=== PATIENT | male | born 1940 | race Caucasian/White ===

== ENCOUNTER → 2017-09-30 | Outpatient (REF) | payer MEDICARE, OTHER ==
[2017-09-30 20:35] LABS: BASO # 0.1 10^3/uL (0.0-0.2); BASO % 0.8 % (0.0-1.0); EOS # 0.3 10^3/uL (0.0-0.50); EOS % 3.9 % (0.0-3.0); HEMATOCRIT 36.2 % (42.0-52.0); HEMOGLOBIN 11.9 g/dl (13.5-17.5); IMMATURE GRANULOCYTE % 0.4 % (0-3.0); LYMPH # 1.7 10^3/uL (1.5-4.5); LYMPH % 21.4 % (24.0-44.0); MEAN CORPUSCULAR HEMOGLOBIN 28.1 pg (27.0-33.0); MEAN CORPUSCULAR HGB CONC 32.9 g/dl (32.0-36.5); MEAN CORPUSCULAR VOLUME 85.4 fl (80.0-96.0); MONO # 0.7 10^3/uL (0.0-0.8); MONO % 8.4 % (0.0-5.0); NEUTROPHILS # 5.2 10^3/uL (1.8-7.7); NEUTROPHILS % 65.1 % (36.0-66.0); PLATELET COUNT, AUTOMATED 197 10^3/uL (150-450); RED BLOOD COUNT 4.24 10^6/uL (4.30-6.10); RED CELL DISTRIBUTION WIDTH 13.9 % (11.5-14.5)
[2017-09-30 20:43] LABS: ESTIMATED AVERAGE GLUCOSE 169 MG/DL (60-110); HEMOGLOBIN A1c 7.5 %
[2017-09-30 20:53] LABS: ALBUMIN 3.8 GM/DL (3.2-5.2); ALBUMIN/GLOBULIN RATIO 1.15 (1.00-1.93); ALKALINE PHOSPHATASE 75 U/L (45-117); ALT/SGPT 20 U/L (12-78); ANION GAP 7 MEQ/L (8-16); AST/SGOT 16 U/L (7-37); BILIRUBIN,TOTAL 0.5 MG/DL (0.2-1.0); BLOOD UREA NITROGEN 15 MG/DL (7-18); CALCIUM LEVEL 8.5 MG/DL (8.8-10.2); CARBON DIOXIDE LEVEL 29 MEQ/L (21-32); CHLORIDE LEVEL 106 MEQ/L (98-107); CHOLESTEROL LEVEL 133 MG/DL (<200); CHOLESTEROL RISK RATIO 3.022 (<5); CREATININE FOR GFR 1.64 MG/DL (0.70-1.30); GLOMERULAR FILTRATION RATE 43.5 (>42); GLUCOSE, FASTING 92 MG/DL (70-100); HDL CHOLESTEROL 44 MG/DL (>40); LDL CHOLESTEROL 63.4 MG/DL (<100); NON-HDL-C 89 MG/DL; POTASSIUM SERUM 4.4 MEQ/L (3.5-5.1); SODIUM LEVEL 142 MEQ/L (136-145); THYROID STIMULATING HORMONE 0.495 uIU/ML (0.358-3.740); TOTAL PROTEIN 7.1 GM/DL (6.4-8.2); TRIGLYCERIDES LEVEL 128 MG/DL (<150)
[2017-09-30 21:01] LABS: CREATININE, URINE 56.8 MG/DL; MAU/CREAT RATIO 445.4 MCG/MG (0.0-30.0)
== END ==
LOC: M SFHCLERA 15:08
DX: I12.9 Hypertensive chronic kidney disease with stage 1 through stage 4 chronic kidney disease, or unspecified chronic kidney disease (principal); E11.22 Type 2 diabetes mellitus with diabetic chronic kidney disease; N18.9 Chronic kidney disease, unspecified
CPT/HCPCS: 84443

== ENCOUNTER → 2018-01-06 | Outpatient (CLI) | payer MEDICARE, OTHER | LOC: M RAD 08:29 | DX: N18.3 Chronic kidney disease, stage 3 (moderate) (principal); I15.0 Renovascular hypertension | CPT/HCPCS: 76775 ==

== ENCOUNTER → 2018-02-03 | Outpatient (REF) | payer MEDICARE, OTHER ==
[2018-02-03 20:51] LABS: ESTIMATED AVERAGE GLUCOSE 180 MG/DL (60-110); HEMOGLOBIN A1c 7.9 %
== END ==
LOC: M SFHCLERA 15:40
DX: E11.22 Type 2 diabetes mellitus with diabetic chronic kidney disease (principal); Z23 Encounter for immunization
CPT/HCPCS: 83036

== ENCOUNTER 2018-03-06 06:46 | Day surgery (SDC) | payer MEDICARE, OTHER ==
[2018-03-06] MEDS ORDERED: MIDAZOLAM INJ 2 MG/2 ML VIAL (J2250) As Ordered (07:13)
[2018-03-06] MEDS: OFLOXACIN 0.3 % (OCUFLOX) OPTH SOL 5ML OS (07:15)
[2018-03-06] MEDS: PROPARACAINE 0.5% OPHTH SOL 15ML OS (07:15)
[2018-03-06] MEDS: TROPICAMIDE 1% OPHTH SOLN 2ML OS (07:15)
[2018-03-06] MEDS: PHENYLEPHRINE 2.5% OPHTH SOL 2ML OS (07:15)
[2018-03-06 07:35] LABS: BEDSIDE GLUCOSE 149 MG/DL (83-110)
[2018-03-06] MEDS ORDERED: fentaNYL 100 MCG/2 ML INJECTION (J3010) As Ordered (08:51)
[2018-03-06] MEDS: POVIDONE-IODINE 5% OPHTH PREP SOL 30ML As Ordered (09:02)
[2018-03-06] MEDS: LIDOCAINE 0.75%/EPINEPHRINE 0.025% IN BSS 1ML SYR INTRACAMERAL (OR ONLY) As Ordered (09:03)
[2018-03-06] MEDS: CEFUROXIME 1MG/0.1ML INTRACAMERAL INJ As Ordered (09:03)
[2018-03-06] MEDS: DUOVISC (0.50ML VISCOAT/0.55ML PROVISC) OPHTH KIT As Ordered (09:03)
[2018-03-06] MEDS: BALANCED SALT IRRIGATION SOLUTION 500ML BAG (FOR OR EYE MACHINE) As Ordered (09:03)
== END 2018-03-06 09:40 | disposition home or self-care (01) ==
LOC: M SDC 06:46
DX: H25.12 Age-related nuclear cataract, left eye (principal); I12.9 Hypertensive chronic kidney disease with stage 1 through stage 4 chronic kidney disease, or unspecified chronic kidney disease; I25.10 Atherosclerotic heart disease of native coronary artery without angina pectoris; E10.9 Type 1 diabetes mellitus without complications; E78.00 Pure hypercholesterolemia, unspecified; J44.9 Chronic obstructive pulmonary disease, unspecified; F43.10 Post-traumatic stress disorder, unspecified; K21.9 Gastro-esophageal reflux disease without esophagitis; M12.9 Arthropathy, unspecified; M48.00 Spinal stenosis, site unspecified; R06.02 Shortness of breath; R51 Headache; R06.83 Snoring; G47.33 Obstructive sleep apnea (adult) (pediatric); N18.9 Chronic kidney disease, unspecified; Z88.8 Allergy status to other drugs, medicaments and biological substances; Z91.048 Other nonmedicinal substance allergy status; Z79.899 Other long term (current) drug therapy; Z79.4 Long term (current) use of insulin; Z79.82 Long term (current) use of aspirin; Z87.81 Personal history of (healed) traumatic fracture; Z85.828 Personal history of other malignant neoplasm of skin
CPT/HCPCS: 66984

== ENCOUNTER 2018-03-13 09:30 | Day surgery (SDC) | payer MEDICARE, OTHER ==
[~2018-03-13 09:30] MED LIST: MIDAZOLAM INJ 2 MG/2 ML VIAL (J2250) As Ordered; fentaNYL 100 MCG/2 ML INJECTION (J3010) As Ordered
[2018-03-13] MEDS: OFLOXACIN 0.3 % (OCUFLOX) OPTH SOL 5ML OD (11:00)
[2018-03-13] MEDS: TROPICAMIDE 1% OPHTH SOLN 2ML OD (11:00)
[2018-03-13] MEDS: PHENYLEPHRINE 2.5% OPHTH SOL 2ML OD (11:00)
[2018-03-13] MEDS: PROPARACAINE 0.5% OPHTH SOL 15ML OD (11:00)
[2018-03-13 11:03] LABS: BEDSIDE GLUCOSE 100 MG/DL (83-110)
[2018-03-13] MEDS: POVIDONE-IODINE 5% OPHTH PREP SOL 30ML As Ordered (12:01)
[2018-03-13] MEDS: BALANCED SALT IRRIGATION SOLUTION 500ML BAG (FOR OR EYE MACHINE) As Ordered (12:01)
[2018-03-13] MEDS: CEFUROXIME 1MG/0.1ML INTRACAMERAL INJ As Ordered (12:02)
[2018-03-13] MEDS: LIDOCAINE 0.75%/EPINEPHRINE 0.025% IN BSS 1ML SYR INTRACAMERAL (OR ONLY) As Ordered (12:02)
[2018-03-13] MEDS: DUOVISC (0.50ML VISCOAT/0.55ML PROVISC) OPHTH KIT As Ordered (12:02)
== END 2018-03-13 12:45 | disposition home or self-care (01) ==
LOC: M SDC 09:30
DX: H25.11 Age-related nuclear cataract, right eye (principal); I10 Essential (primary) hypertension; I25.10 Atherosclerotic heart disease of native coronary artery without angina pectoris; E78.00 Pure hypercholesterolemia, unspecified; E10.9 Type 1 diabetes mellitus without complications; M48.00 Spinal stenosis, site unspecified; K21.9 Gastro-esophageal reflux disease without esophagitis; R06.02 Shortness of breath; R51 Headache; J45.909 Unspecified asthma, uncomplicated; K44.9 Diaphragmatic hernia without obstruction or gangrene; R06.83 Snoring; G47.33 Obstructive sleep apnea (adult) (pediatric); N28.9 Disorder of kidney and ureter, unspecified; R29.898 Other symptoms and signs involving the musculoskeletal system; F43.10 Post-traumatic stress disorder, unspecified; M12.9 Arthropathy, unspecified; Z88.8 Allergy status to other drugs, medicaments and biological substances; Z91.048 Other nonmedicinal substance allergy status; Z79.899 Other long term (current) drug therapy; Z79.4 Long term (current) use of insulin; Z79.82 Long term (current) use of aspirin; Z86.73 Personal history of transient ischemic attack (TIA), and cerebral infarction without residual deficits
CPT/HCPCS: 66984

== ENCOUNTER → 2018-05-15 | Outpatient (REF) | payer MEDICARE, OTHER ==
[~2018-05-15] MED LIST changes: +AMLO2.5T3 PO; +ASPI1TAB PO; +ATEN50TA2 PO; +ATOR40TA75 PO; +B-2100TA PO; +CALC1CAP31 PO; +CYCLOSPORINE OU; +D 10CHW PO; +FISH1CAP24 PO; +FLUTISP; +GLIP10TA6 PO; +HUMA100I5 SC; +LORA-243 PO; +LOSA50TA88 PO; +MAGO400T PO; -MIDAZOLAM INJ 2 MG/2 ML VIAL (J2250) As Ordered; +PANT40TA3 PO; +PARO30TA3 PO; +POTA10TA16 PO; +PRAZ2CAP PO; +PROAAER10 INH; +REFR0.5D8 OU; +SYMB80INH INH; +TIOT18INH INH; -fentaNYL 100 MCG/2 ML INJECTION (J3010) As Ordered; +glargine insulin SC
[2018-05-15 20:03] LABS: CALCIUM LEVEL 8.5 MG/DL (8.8-10.2); CREATININE FOR GFR 1.85 MG/DL (0.70-1.30); GLOMERULAR FILTRATION RATE 37.7 (>42); POTASSIUM SERUM 4.8 MEQ/L (3.5-5.1)
[2018-05-15 20:27] LABS: HEMOGLOBIN A1c 8.3 %
== END ==
LOC: M SFHCLERA 16:27
PROVIDERS: ATTEND Family Medicine
DX: E11.22 Type 2 diabetes mellitus with diabetic chronic kidney disease (principal)

== ENCOUNTER → 2018-05-15 | Outpatient (CLI) | payer MEDICARE, OTHER ==
--- NOTE | 2018-05-15 10:56 | REP ---
HIGH-RESOLUTION BILATERAL SCROTAL SONOGRAPHY: HISTORY: Swollen tender right testicle. Exam, suggestive of hydrocele. FINDINGS: High-resolution bilateral scrotal sonography shows small bilateral hydroceles. No intratesticular mass lesion is seen on either side. The right testis measures 4.3 x 2.9 x 3.4 cm. Left testis measures 4.8 x 2.5 x 3.4 cm. Doppler flow is preserved in both testes. Resistive indices are 0.61 on the right and 0.67 on the left. There are epididymal cysts bilaterally. The largest on the right measures 2.9 x 2.5 x 2.8 cm and 1.8 x 1.2 x 1.4 cm. There is a cyst in the head of the epididymis on the left measuring 1.0 x 1.0 x 0.8 cm. IMPRESSION: 2.9 cm cyst in the head of the epididymis on the right. Small bilateral hydroceles. No intratesticular mass lesion seen. Electronically Signed by Christopher Diaz MD 05/15/2018 06:02 P
== END ==
LOC: M RAD 08:53
PROVIDERS: ATTEND Family Medicine
DX: N50.3 Cyst of epididymis (principal); N50.89 Other specified disorders of the male genital organs; E11.22 Type 2 diabetes mellitus with diabetic chronic kidney disease

== ENCOUNTER → 2018-07-16 | Outpatient (REF) | payer MEDICARE, OTHER ==
[2018-07-16 12:07] LABS: CALCIUM LEVEL 8.3 MG/DL (8.8-10.2); CREATININE FOR GFR 2.33 MG/DL (0.70-1.30); GLOMERULAR FILTRATION RATE 28.9 (>42); POTASSIUM SERUM 4.4 MEQ/L (3.5-5.1)
[2018-07-16 12:43] LABS: HEMOGLOBIN A1c 7.8 %
== END ==
LOC: M SFHCLERA 08:59
PROVIDERS: ATTEND Family Medicine
DX: I10 Essential (primary) hypertension (principal)

== ENCOUNTER → 2018-07-22 | Outpatient (REF) | payer MEDICARE, OTHER ==
[2018-07-22 13:29] LABS: CALCIUM LEVEL 8.7 MG/DL (8.8-10.2); CREATININE FOR GFR 2.16 MG/DL (0.70-1.30); GLOMERULAR FILTRATION RATE 31.6 (>42); POTASSIUM SERUM 4.2 MEQ/L (3.5-5.1)
== END ==
LOC: M SFHCLERA 09:14
PROVIDERS: ATTEND Family Medicine
DX: I10 Essential (primary) hypertension (principal)

== ENCOUNTER → 2018-08-05 | Outpatient (CLI) | payer MEDICARE, OTHER ==
[~2018-08-05] MED LIST changes: -ASPI1TAB PO; +ASPI81TA26 PO
--- NOTE | 2018-08-05 11:45 | REP ---
Right hip three views: There is mild joint space narrowing. There is no femoral head deformity. There is no fracture or dislocation. Mineralization is normal. There is a calcification lateral to the acetabular roof, likely a degenerative ligamentous calcification. Impression: Mild joint space narrowing. Degenerative calcification lateral to the acetabular roof. The wall of the Electronically Signed by Luis Keller MD 08/05/2018 11:36 A
== END ==
LOC: M LRY 09:29
PROVIDERS: ATTEND Family Medicine
DX: M25.551 Pain in right hip (principal); I10 Essential (primary) hypertension; E11.9 Type 2 diabetes mellitus without complications

== ENCOUNTER 2018-09-17 11:38 | Emergency (ER) | payer MEDICARE, OTHER ==
[~2018-09-17] VITALS: Ht 165.1 cm; Wt 92.9 kg
[2018-09-17] MEDS ORDERED: LOSA100T5 PO (11:56)
[2018-09-17] MEDS ORDERED: NS 1,000 ML IV ONE ×2 (13:15→16:00)
[2018-09-17] MEDS ORDERED: ONDANSETRON 4MG/2ML VIAL (J2405) IV ONE (13:15)
[2018-09-17 13:33] LABS: BASO % 0.5 % (0.0-1.0); EOS # 0.5 10^3/uL (0.0-0.50); HEMATOCRIT 36.3 % (42.0-52.0); HEMOGLOBIN 11.8 g/dl (13.5-17.5); LYMPH # 1.7 10^3/uL (1.5-4.5); LYMPH % 21.1 % (24.0-44.0); MEAN CORPUSCULAR HEMOGLOBIN 28.3 pg (27.0-33.0); MEAN CORPUSCULAR HGB CONC 32.5 g/dl (32.0-36.5); MEAN CORPUSCULAR VOLUME 87.1 fl (80.0-96.0); MONO # 0.9 10^3/uL (0.0-0.8); MONO % 11.4 % (0.0-5.0); NEUTROPHILS % 60.9 % (36.0-66.0); PLATELET COUNT, AUTOMATED 222 10^3/uL (150-450); RED BLOOD COUNT 4.17 10^6/uL (4.30-6.10); WHITE BLOOD COUNT 8.2 10^3/uL (4.0-10.0)
[2018-09-17 13:54] LABS: ALBUMIN 4.1 GM/DL (3.2-5.2); BILIRUBIN,DIRECT 0.1 MG/DL (0.0-0.2); BILIRUBIN,TOTAL 0.5 MG/DL (0.2-1.0); CALCIUM LEVEL 9.1 MG/DL (8.8-10.2); CREATININE FOR GFR 2.4 MG/DL (0.70-1.30); GLOMERULAR FILTRATION RATE 27.9 (>42); POTASSIUM SERUM 4.5 MEQ/L (3.5-5.1); TOTAL PROTEIN 7.2 GM/DL (6.4-8.2)
--- NOTE | 2018-09-17 14:57 | REP ---
Clinical: Nausea and vomiting. Technique: Axial noncontrast images from the lung bases to the pubic symphysis with coronal and sagittal re-formations. Comparison: None. Findings: Lung bases demonstrate mild bilateral dependent and fibroatelectatic changes. Hepatic and splenic calcifications suggest prior granulomas disease without focal acute abnormality identified. Pancreas, gallbladder, bilateral adrenal glands are normal. The kidneys demonstrate chronic atrophic changes and chronic-appearing perinephric stranding without hydronephrosis or nephrolithiasis. The enteric system is without obstruction or acute inflammatory process few scattered colonic diverticula noted without acute diverticulitis. Pelvis demonstrates mildly enlarged prostate gland with mass effect on the base of the bladder. No ascites. No free air. No adenopathy. Atherosclerotic changes of the aorta and vasculature noted without aneurysm. Musculoskeletal structures demonstrate degenerative changes without focal abnormality. Impression: Relatively chronic-appearing changes as described above. No obvious acute abdominopelvic pathology appreciated. Electronically Signed by Anatoliy Falk MD 09/17/2018 02:48 P
[2018-09-17 18:00] VITALS: BP 170/74
== END 2018-09-17 18:03 | disposition home or self-care (01) ==
LOC: M ED 11:38
DX: E86.0 Dehydration (principal); E11.9 Type 2 diabetes mellitus without complications; I10 Essential (primary) hypertension; J44.9 Chronic obstructive pulmonary disease, unspecified; J45.909 Unspecified asthma, uncomplicated; M48.00 Spinal stenosis, site unspecified; K21.9 Gastro-esophageal reflux disease without esophagitis; M51.9 Unspecified thoracic, thoracolumbar and lumbosacral intervertebral disc disorder; Z79.82 Long term (current) use of aspirin; Z88.7 Allergy status to serum and vaccine; Z88.8 Allergy status to other drugs, medicaments and biological substances
CPT/HCPCS: 74176; 80048; 80076; 81001; 83690; 85025; 87507; 96361; 96374; 99284; J2405

== ENCOUNTER → 2018-09-19 | Outpatient (REF) | payer MEDICARE, OTHER ==
[~2018-09-19] MED LIST changes: +LOSA100T5 PO
[2018-09-19 14:30] LABS: BASO % 0.4 % (0.0-1.0); EOS # 0.4 10^3/uL (0.0-0.50); EOS % 5.3 % (0.0-3.0); HEMATOCRIT 32.2 % (42.0-52.0); HEMOGLOBIN 10.3 g/dl (13.5-17.5); LYMPH # 1.7 10^3/uL (1.5-4.5); LYMPH % 24.7 % (24.0-44.0); MEAN CORPUSCULAR HEMOGLOBIN 28.3 pg (27.0-33.0); MEAN CORPUSCULAR VOLUME 88.5 fl (80.0-96.0); MONO # 0.7 10^3/uL (0.0-0.8); MONO % 9.9 % (0.0-5.0); NEUTROPHILS # 4.1 10^3/uL (1.8-7.7); NEUTROPHILS % 59.3 % (36.0-66.0); PLATELET COUNT, AUTOMATED 205 10^3/uL (150-450); RED BLOOD COUNT 3.64 10^6/uL (4.30-6.10)
== END ==
LOC: M LAB REF 13:57
PROVIDERS: ATTEND Internal Medicine Nephrology
DX: N18.9 Chronic kidney disease, unspecified (principal); D63.1 Anemia in chronic kidney disease

== ENCOUNTER → 2018-12-04 | Outpatient (CLI) | payer MEDICARE, OTHER ==
[~2018-12-04] MED LIST changes: +ACET650T15 PO; +B-12100021 PO; +HYDR-3713 PO; +MAGN400T3 PO; +PERC5TAB12 PO; +SYMB16INH INH; +XARE10TA PO
--- NOTE | 2018-12-04 15:20 | REP ---
MRI LEFT SHOULDER: TECHNIQUE: Axial T2 fat sat, gradient echo, sagittal oblique T2 fat sat, coronal oblique T1, T2 fat sat. There is a complete full-thickness tear of the supraspinatus tendon with retraction of the musculotendinous junction approximately 5 cm. There is a high-grade tear of the subscapularis tendon which appears virtually complete. There is also a high grade tear of the infraspinatus tendon with the tear extending through the full-thickness of at least a portion of the infraspinatus tendon. Teres minor appears intact. Metallic clothing artifact is seen in the region of the acromion and humeral head from prior rotator cuff repair and likely acromioplasty. Humeral head is high-riding and abuts the acromion. Acromion is type 2. Biceps tendon is displaced anteromedially out of the bicipital groove with thickening of increased signal compatible with tendonitis and possibly a partial tear. There is mild to moderate surrounding fluid. There is no Hill-Sachs deformity. The deltoid muscle demonstrates no abnormal signal. There is diffuse labral fraying. No definite discrete labral tear is seen. There is moderate diffuse chondromalacia at the glenohumeral joint. Subchondral marrow edema is seen in the superior glenoid and superior humeral head. There is a moderate joint effusion with fluid extending into the subacromial subdeltoid bursae. IMPRESSION: Full-thickness complete tear supraspinatus tendon with retraction of the musculotendinous junction approximately 5 cm. There is a high grade and virtually complete tear of the subscapularis tendon. There is a high-grade tear of the infraspinatus tendon with a full-thickness tear through at least a portion of the tendon. The acromion is type 2. There is evidence of prior rotator cuff repair and acromioplasty. Biceps tendon is displaced anteromedially out of the bicipital groove with increased signal and surrounding fluid compatible with tendinitis and possibly a partial tear. There is diffuse labral fraying. There is moderate chondromalacia of the glenohumeral joint with subchondral marrow edema. Moderate joint effusion with fluid extending into the subacromial/subdeltoid bursae. Unreviewed
== END ==
LOC: M RAD 11:20
PROVIDERS: ATTEND Orthopaedic Surgery Sports Medicine
DX: M75.120 Complete rotator cuff tear or rupture of unspecified shoulder, not specified as traumatic (principal); M25.412 Effusion, left shoulder; M94.212 Chondromalacia, left shoulder; S43.432A Superior glenoid labrum lesion of left shoulder, initial encounter; Y92.9 Unspecified place or not applicable; Y93.9 Activity, unspecified

== ENCOUNTER → 2019-03-02 | Outpatient (CLI) | payer MEDICARE, OTHER ==
[~2019-03-02] MED LIST changes: -PERC5TAB12 PO; -XARE10TA PO
[2019-03-02 15:15] LABS: HEMATOCRIT 32.3 % (42.0-52.0); HEMOGLOBIN 10.9 g/dl (13.5-17.5); MEAN CORPUSCULAR HEMOGLOBIN 30.4 pg (27.0-33.0); MEAN CORPUSCULAR HGB CONC 33.7 g/dl (32.0-36.5); MEAN CORPUSCULAR VOLUME 90.2 fl (80.0-96.0); PLATELET COUNT, AUTOMATED 207 10^3/uL (150-450); RED BLOOD COUNT 3.58 10^6/uL (4.30-6.10); WHITE BLOOD COUNT 6.7 10^3/uL (4.0-10.0)
--- NOTE | 2019-03-02 15:22 | REP ---
Two-view chest: 03/02/2019. Indication: Preoperative assessment. Comparison: None. Findings: The lungs are clear. Minimal bibasilar plate-like atelectasis is noted. There is no pleural effusion or pneumothorax. The cardiomediastinal silhouette is unremarkable. The lungs are mildly hyperinflated. Impression: No acute cardiopulmonary process. Electronically Signed by Harjeet Dhaliwal DO 03/02/2019 03:14 P
[2019-03-02 15:30] LABS: INR 1.09; PROTHROMBIN TIME 13.8 SECONDS (11.8-14.0)
[2019-03-02 15:36] LABS: ALBUMIN 3.7 GM/DL (3.2-5.2); BILIRUBIN,TOTAL 0.4 MG/DL (0.2-1.0); CALCIUM LEVEL 9.2 MG/DL (8.8-10.2); CREATININE FOR GFR 2.05 MG/DL (0.70-1.30); GLOMERULAR FILTRATION RATE 33.4 (>35); POTASSIUM SERUM 4.5 MEQ/L (3.5-5.1); TOTAL PROTEIN 6.9 GM/DL (6.4-8.2)
[2019-03-02 16:14] LABS: ERYTHROCYTE SEDIMENTATION RATE 26 mm/hr (0-20)
--- NOTE | 2019-03-02 21:54 | ECGEPIP ---
[facility] Test Date: 2019-03-02 Pat Name: RUDDY PAIGE Department: Room: - Gender: Male Order Dispatcher: [facility] : 1940 Requested By: Supa Mckay Order Number: [id number] Reading MD: Byron Nova Measurements Intervals [place] Rate: 50 P: 69 MA: 204 QRS: 14 QRSD: 177 T: 100 QT: 493 QTc: 451 Interpretive Statements Sinus bradycardia Left bundle branch block Comparison tracing not on file Electronically Signed on 03-02-2019 21:54:20 EST by Byron Nova
== END ==
LOC: M LAB 14:14
PROVIDERS: ATTEND Orthopaedic Surgery
DX: Z01.810 Encounter for preprocedural cardiovascular examination (principal); M16.11 Unilateral primary osteoarthritis, right hip; Z79.899 Other long term (current) drug therapy

== ENCOUNTER → 2019-03-06 | Outpatient (REF) | payer MEDICARE, OTHER ==
[~2019-03-06] MED LIST changes: +PERC5TAB12 PO; +XARE10TA PO
[2019-03-06 16:54] LABS: HEMOGLOBIN 11.8 g/dl (13.5-17.5)
== END ==
LOC: M SFHCLERA 11:26
PROVIDERS: ATTEND Family Medicine
DX: Z01.818 Encounter for other preprocedural examination (principal); M16.11 Unilateral primary osteoarthritis, right hip; I10 Essential (primary) hypertension; E11.9 Type 2 diabetes mellitus without complications
CPT/HCPCS: 83036; 85014; 85018; G0463

== ENCOUNTER 2019-03-18 07:00 | Inpatient (IN) | payer MEDICARE, OTHER ==
--- NOTE | 2019-03-16 16:24 | HPE ---
DATE OF ANTICIPATED ADMISSION: 03/18/2019 ATTENDING PHYSICIAN: Dr. Supa Mckay CHIEF COMPLAINT: Right hip pain and stiffness. HISTORY: This is a pleasant, 79-year-old male patient with worsening right hip pain and stiffness with weightbearing activities, who has failed to improve with conservative treatment. He has elected for right total hip arthroplasty with Dr. Supa Mckay for his continued symptoms. ALLERGIES: TYLENOL, LISINOPRIL, REQUIP, FLUNISOLIDE, TETANUS STATUS, DTAP INJECTION. CURRENT MEDICATIONS: - cyclosporine eye drops - paroxetine 30 mg one by mouth daily - prazosin 2 mg one by mouth at bedtime daily - loratadine 10 mg one by mouth daily - fish oil 1000 mg one by mouth daily - budesonide [id number] - 4.5 mcg 2 puffs twice a day - riboflavin 100 mg one by mouth daily - tiotropium bromide [id number] mcg one by mouth daily - albuterol sulfate 108 mcg 2 puffs as needed every 6 hours - fluticasone [id number] mcg one per nostril daily - pantoprazole sodium 40 mg one by mouth daily - cholecalciferol 1000 units one by mouth daily - potassium chloride extended release 10 mEq one by mouth daily with food - 1000 mcg one by mouth daily - magnesium oxide 400 mg one by mouth daily - calcitriol 0.5 mcg one by mouth daily - atorvastatin 40 mg one by mouth daily - glipizide 10 mg one by mouth twice a day - insulin - atenolol 50 mg one by mouth daily - amlodipine 5 mg one by mouth daily - losartan potassium hydrochlorothiazide 100 - 25 one by mouth daily - hydrocodone acetaminophen one by mouth every 4 hours as needed for pain PAST MEDICAL HISTORY: 1. Diabetes, insulin-dependent. 2. Hypertension. 3. Seasonal allergies. 4. Obstructive sleep apnea. 5. Chronic heartburn. 6. Chronic obstructive pulmonary disease (COPD). 7. Headaches. 8. Posttraumatic stress disorder (PTSD). 9. Hyperlipidemia. 10. Chronic kidney disease. SURGICAL HISTORY: 1. Hemorrhoidectomy. 2. Right forearm open reduction, internal fixation (ORIF). 3. Left rotator cuff repair. 4. Right rotator cuff repair. 5. Left knee arthroscopy. 6. Basal cell carcinoma removal right forehead and upper chest. 7. Bilateral cataract surgery. SOCIAL HISTORY: The patient is a former smoker, does not use alcohol. FAMILY HISTORY: Noncontributory. REVIEW OF SYSTEMS: Denies fever, chills, chest pain, shortness breath, nausea, vomiting, diarrhea. Denies recent upper respiratory or urinary tract infection symptoms. Reports continued right hip pain with weightbearing activities. PHYSICAL EXAMINATION: Height 5, 5. Weight 188.6. Temperature 97.5. Blood pressure 130/60. Respirations 13. Pulse 62. Normocephalic, atraumatic. Neck supple and nontender with no lymphadenopathy or jugular venous distention (JVD). Abdomen soft, nontender to palpation. S1, S2 auscultated with nonlabored breathing. Abdomen soft, nontender. The right hip is well perfused. The overlying skin is intact. There is no obvious deformity of right lower extremity. Intact neurovascular status. EKG with sinus bradycardia, left bundle branch block. No comparison on file. Chest x-ray no acute cardiopulmonary process. LABS: White count 6.7, red count 3.58, hemoglobin 10.9, hematocrit 32.3. ESR 26. PT 13.8, INR 1.09. BUN 28, creatinine 2.05. Medical optimization by Dr. Del Toro was reviewed and available today on the chart. ASSESSMENT: Symptomatic right hip degenerative changes. PLAN: Consented for right total hip arthroplasty with Dr. Supa Mckay pending clearance from linderman machine operator and bank teller machine mechanic. Appointments on 03/17/2019. Otherwise, preoperative medical recommendations were noted in Dr. Del Toro's preoperative appointment.
[~2019-03-18] VITALS: Ht 165.1 cm; Wt 88.5 kg
[2019-03-18] VITALS (9 sets, daily range): BP systolic 135–156; BP diastolic 62–80; O2SAT 96
[~2019-03-18 07:00] MED LIST changes: +LIDOCAINE 1% MDV 20ML VIAL SQ PRN; -PERC5TAB12 PO; -XARE10TA PO
[2019-03-18] MEDS ORDERED: ceFAZolin SOD 2 GM in IV 1 EA IV ONE (08:30)
[2019-03-18] MEDS ORDERED: ATENOLOL 25 MG TAB As Ordered ONE (08:37)
[2019-03-18] MEDS ORDERED: LR 1,000 ML IV ONE (09:00)
[2019-03-18] MEDS: ATORVASTATIN 20 MG TAB PO SCH (09:00)
[2019-03-18] MEDS ORDERED: ATENOLOL 25 MG TAB PO ONE (09:00)
[2019-03-18] MEDS: LORATADINE 10 MG TAB PO SCH (09:00)
[2019-03-18] MEDS: CALCITRIOL 0.25 MCG CAP (S0169) PO SCH (09:00)
[2019-03-18] MEDS ORDERED: BUPIVACAINE LIPOSOME/PF 1.3% 20ML VIAL (13.3MG/ML)(EXPAREL)(C9290 PER1MG) As Ordered ONE (09:33)
[2019-03-18] MEDS ORDERED: EPINEPHrine INJ 1 MG/ML 1ML AMP As Ordered ONE (09:33)
[2019-03-18] MEDS ORDERED: ceFAZolin 1GM INJ (J0690 PER 500MG) As Ordered ONE (09:33)
[2019-03-18] MEDS ORDERED: TRANEXAMIC ACID 100 MG/ML 10ML VIAL As Ordered ONE (09:33)
--- NOTE | 2019-03-18 09:56 | IPN ---
DATE: 03/18/2019 Patient seen and examined. He wished to go ahead with a right total hip arthroplasty. He understands the nature of this, the risks of bleeding, infection, damage to nerves, vessels, persistent pain, wear loosening, dislocation, leg length inequality, blood clots, medical problems, among others.
[2019-03-18] MEDS ORDERED: MIDAZOLAM INJ 2 MG/2 ML VIAL (J2250) As Ordered ONE (10:30)
[2019-03-18] MEDS ORDERED: PROPOFOL 200 MG/20 ML VIAL As Ordered ONE (10:30)
[2019-03-18] MEDS ORDERED: ePHEDrine SULFATE 25 MG/5 ML(5MG/ML) SYRINGE As Ordered ONE (10:33)
[2019-03-18] MEDS ORDERED: PHENYLephrine HCL 500 MCG/5 ML (100MCG/ML) SYRINGE (J2370) As Ordered ONE (10:45)
[2019-03-18] MEDS ORDERED: MORPHINE 4 MG/ML 1ML VIAL/SYRINGE (J2270) IV PRN (12:30)
[2019-03-18] MEDS ORDERED: FLEET ENEMA PR PRN (12:30)
[2019-03-18] MEDS ORDERED: oxyCODONE 5MG TAB PO PRN (12:30)
[2019-03-18] MEDS ORDERED: ONDANSETRON 4MG/2ML VIAL (J2405) IV PRN ×2 (12:30)
[2019-03-18] MEDS ORDERED: LR 1,000 ML IV SCH ×2 (12:30)
[2019-03-18] MEDS: oxyCODONE 5MG TAB PO PRN ×3 (13:17→17:47)
[2019-03-18] MEDS ORDERED: fentaNYL 100 MCG/2 ML INJECTION (J3010) As Ordered ONE (13:32)
[2019-03-18] MEDS: fentaNYL 100 MCG/2 ML INJECTION (J3010) IV PRN ×4 (13:35→13:50)
--- NOTE | 2019-03-18 13:35 | REP ---
RIGHT HIP, TWO VIEWS: Two views of the right hip are performed. There is a total hip prosthesis which appears to be in good position. Osseous structures are intact and well aligned. Electronically Signed by Luis Mccloud MD 03/19/2019 11:21 A
[2019-03-18] MEDS: MORPHINE 4 MG/ML 1ML VIAL/SYRINGE (J2270) IV PRN ×2 (13:50→19:40)
[2019-03-18] MEDS ORDERED: DEXTROSE 50% 50 ML SYRINGE IV PRN (14:30)
[2019-03-18] MEDS ORDERED: ALBUTEROL SULFATE 2.5 MG/0.5 ML INH NEB SOLN NEB PRN (14:30)
[2019-03-18] MEDS ORDERED: GLUCAGON FOR INJ 1 MG VIAL (J1610) SC PRN (14:30)
[2019-03-18] MEDS ORDERED: GLUCOSE 4 GM CHEW TABLET PO PRN (14:30)
[2019-03-18] MEDS ORDERED: KETOROLAC 30 MG/ML VIAL (J1885) As Ordered ONE (14:55)
[2019-03-18] MEDS ORDERED: KETOROLAC 30 MG/ML VIAL (J1885) IV ONE (15:00)
--- NOTE | 2019-03-18 16:00 | HPEPDOC ---
General Date of Admission Mar 18, 2019 at 07:00 Date of Service: Mar 18, 2019 Chief Complaint The patient is a 79-year-old male admitted with a reason for visit of Right Hip Arthritis. Source: Patient, Old records History of Present Illness consultation report: Consultation requested by orthopedics Consultation for management of medical commorbidities. This is a 79 year old male with multiple medical issues including Diabetes, hypertension, Paula, obesity, hyperlipidemia was admitted to the orthopedic service for elective right total hip replacement due to progressively worsening right hip pain and stiffness with weight bearing activities, who has failed to improve with conservative treatment. He has elected for right total hip arthroplasty with Dr. Supa Mckay for his continued symptoms. Hospitalist has been consulted for management of medical commorbidities. Home Medications Scheduled Amlodipine Besylate (Amlodipine Besylate) 2.5 Mg Tab, 5 MG PO QHS, (Reported) Atenolol (Atenolol) 50 Mg Tab, 50 MG PO QPM, (Reported) Atorvastatin Calcium (Atorvastatin Calcium) 40 Mg Tab, 40 MG PO DAILY, (Reported) Budesonide/Formoterol (Symbicort 160-4.5 Mcg Inhaler) 6 Gm Hfa.aer.ad, Unknown Dose INH BID, (Reported) Calcitriol (Calcitriol) 0.25 Mcg Cap, 0.5 MCG PO DAILY, (Reported) Cholecalciferol (Vitamin D3) (Vitamin D3) 1,000 Unit Chw, 1,000 UNIT PO DAILY, (Reported) Cyanocobalamin (Vitamin B-12) (B-12) 1,000 Mcg Tablet, 1,000 MCG PO DAILY, (Reported) Fluticasone Propionate (Fluticasone Propionate) 50 Mcg/Act Spr, 2 SPRAY NA QAM, (Reported) Glipizide (Glipizide) 10 Mg Tab, 10 MG PO BID, (Reported) Loratadine (Loratadine) 10 Mg Tab, 10 MG PO DAILY, (Reported) Losartan/Hydrochlorothiazide (Losartan-Hctz 100-25 mg Tab) 1 Each Tablet, 1 TAB PO BID, (Reported) Magnesium Oxide (Magnesium Oxide) 400 Mg Tablet, 400 MG PO BID, (Reported) Dyer-3/Dha/Epa/Fish Oil (Fish Oil 500 mg Softgel) 1 Cap Cap, 1 CAP PO QPM, (Reported) Pantoprazole Sodium (Pantoprazole Sodium) 40 Mg Tab, 40 MG PO BID, (Reported) Paroxetine HCl (Paroxetine) 30 Mg Tab, 40 MG PO QPM, (Reported) Potassium Chloride (Potassium Chloride) 10 Meq Tab, 10 MEQ PO DAILY, (Reported) Prazosin Hcl (Prazosin HCl) 2 Mg Cap, 2 MG PO QPM, (Reported) Riboflavin (Vitamin B2) (Vitamin B-2) 100 Mg Tab, 200 MG PO BID, (Reported) Tiotropium Blythe Monohydrate (Spiriva) 5 Inhalation/Inhaler Powd, 2 INHALATION INH DAILY, (Reported) [cyclosporine] , 1 DROP OU BID, (Reported) [glargine insulin] , 40 UNITS SC QPM, (Reported) if glucose over 120 Scheduled PRN Acetaminophen (Acetaminophen ER) 650 Mg Tablet.er, 1,300 MG PO TID PRN for PAIN, (Reported) Albuterol Sulfate (Proair Hfa) 108 Mcg/Act Aer, 2 PUFF INH PRN PRN for SOB /WHEEZING, (Reported) Hydrocodone/Acetaminophen (Hydrocodone-Acetamin 5-325 mg) 1 Each Tablet, 1 TAB PO Q6H PRN for PAIN, (Reported) MDD 4 Allergies Coded Allergies: diphtheria toxoid,fluid (Verified Allergy, Severe, swelling, 03/04/19) ropinirole (Verified Allergy, Severe, face swelling, 03/04/19) fosinopril (Verified Allergy, Intermediate, coughing, 03/04/19) flunisolide (Verified Adverse Reaction, Intermediate, nosebleeds, 03/18/19) Past Medical History Medical History DIABETES, HYPERTENSION SEASONAL ALLERGIES OBSTRUCTIVE SLEEP APNEA ON CPAP ESOPHAGEAL STRICTURE with DILATATION X 2 CHRONIC HEARTBURN COPD, S/P 8 YEARS OF TOBACCO, HEADACHES, FOR WHICH HE TAKES GABAPENTIN 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[place], 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 FOR 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 WHICH HELPS, ON PAROXETINE, GOES TO PTSD MEETINGS WEEKLY HYPERLIPIDEMIA ON SIMVASTATIN CKD III, 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 SEPTEMBER 2017 DRY EYES ON CYCLOSPORINE EYE DROPS Surgical History HEMORRHOID 1977 RIGHT FOREARM FRACTURE 1982 LEFT ROTATOR CUFF REPAIR 1998 RIGHT ROTATOR CUFF REPAIR 2003 LEFT KNEE SCOPE 1985 BASIL CELL CANCER REMOVED OF RIGHT FOREHEAD 01/2018 UPPER CHEST BCC REMOVED 05/2018 BILATERAL CATARACT 02/2018 Family History Significant Family History: Heart disease (mother and father and one sister all from heart attacks), Hypertension (mother , father and one sister) Social History * Smoker: former Smoker Alcohol: Denies Drugs: denies A-FIB/CHADSVASC A-FIB History Current/History of A-Fib/PAF?: No Review of Systems Constitutional: Denies: Chills, Fever, Night Sweats Eyes: Denies: Pain, Vision change ENT: Denies: Head Aches, Ear Pain, Dysphagia Skin: Denies: Rash, Lesions, Breakdown Pulmonary: Denies: Dyspnea, Cough Cardiovascular: Denies: Chest Pain, Palpitations, Orthopnea, Paroxysmal Noc. Dyspnea, Lt Headedness Gastrointestinal: Denies: Nausea, Vomiting, Abdominal Pain, Diarrhea Genitourinary: Denies: Dysuria, Frequency, Incontinence, Retention Musculoskeletal: Reports: Shoulder Pain (bilateral), Joint Pain (left hip pain in the surgical area) Neurological: Denies: Weakness, Numbness, Change in speech, Confusion Physical Examination General Exam: Positive: Alert, Cooperative, No Acute Distress Eye Exam: Positive: PERRLA, Conjunctiva & lids normal, EOMI; Negative: Sclera icteric ENT Exam: Positive: Atraumatic, Mucous membr. moist/pink, Pharynx Normal Neck Exam: Positive: Supple; Negative: JVD, thyromegaly Chest Exam: Positive: Clear to auscultation, Normal air movement Heart Exam: Positive: Rate Normal, Regular Rhythm, Normal S1, Normal S2; Negative: Murmurs, Rubs Abdomen Exam: Positive: Normal bowel sounds, Soft; Negative: Tenderness, Hepatospenomegaly Extremity Exam: Positive: Normal pulses; Negative: Clubbing, Cyanosis, Edema Skin Exam: Positive: Nl turgor and temperature; Negative: Breakdown, Lesion Vital Signs Vital Signs Date Time Temp Pulse Resp B/P (MAP) Pulse Ox O2 Delivery O2 Flow Rate FiO2 03/18/19 13:45 51 16 152/70 (97) 100 03/18/19 13:30 Room Air 03/18/19 13:16 98.1 Laboratory Data Labs 24H Laboratory Tests 2 03/18/19 08:45: Bedside Glucose (Misc Panel) 151H 03/18/19 12:16: Bedside Glucose (Misc Panel) 156H Assessment/Plan S/P ELECTIVE RIGHT TOTAL HIP REPLACEMENT DUE TO ADVANCED OA PAIN MANAGEMENT AND DVT PROPHYLAXIS PER ORTHO PT AND OT. 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
[2019-03-18] MEDS: HumaLOG INSULIN (NovoLOG) PER UNIT SC SCH ×2 (17:48→22:18)
[2019-03-18] MEDS: ceFAZolin SOD 2 GM in IV 1 EA IV SCH (17:48)
[2019-03-18] MEDS: SYMBICORT 160/4.5MCG INHALER 6GM INH SCH (21:00)
[2019-03-18] MEDS: MAGNESIUM OXIDE 400 MG TAB (MAG-OX) PO SCH (22:13)
[2019-03-18] MEDS: LEVEMIR (INSULIN DETEMIR) 1 UNITS/0.01ML SC SCH (22:13)
[2019-03-18] MEDS: PANTOPRAZOLE 40MG TAB (PROTONIX) PO SCH (22:13)
[2019-03-18] MEDS: PRAZOSIN 1 MG CAP PO SCH (22:16)
[2019-03-18] MEDS: ATENOLOL 50 MG TAB PO SCH (22:16)
[2019-03-18] MEDS: amLODIPine 5 MG TAB PO SCH (22:17)
[2019-03-18] MEDS: PARoxetine 20 MG TAB PO SCH (22:17)
[2019-03-19] VITALS (7 sets, daily range): BP systolic 93–119; BP diastolic 51–71; O2SAT 94–95
[2019-03-19] MEDS: ceFAZolin SOD 2 GM in IV 1 EA IV SCH (03:26)
[2019-03-19] MEDS: ACETAMINOPHEN TAB 650MG DOSE (2X325MG) PO PRN ×2 (03:27→14:10)
[2019-03-19] MEDS ORDERED: XARE10TA PO (06:58)
[2019-03-19] MEDS ORDERED: PERC5TAB12 PO (06:58)
[2019-03-19] MEDS: glipiZIDE (GLUCOTROL) 5 MG TAB PO SCH ×2 (07:30→17:55)
[2019-03-19] MEDS: TIOTROPIUM INHALER/CAPSULE (SPIRIVA) INH SCH (07:38)
[2019-03-19] MEDS: SYMBICORT 160/4.5MCG INHALER 6GM INH SCH ×2 (07:39→20:30)
[2019-03-19 07:47] LABS: HEMATOCRIT 28.9 % (42.0-52.0); HEMOGLOBIN 9.4 g/dl (13.5-17.5); MEAN CORPUSCULAR HEMOGLOBIN 30.3 pg (27.0-33.0); MEAN CORPUSCULAR HGB CONC 32.5 g/dl (32.0-36.5); MEAN CORPUSCULAR VOLUME 93.2 fl (80.0-96.0); PLATELET COUNT, AUTOMATED 182 10^3/uL (150-450); WHITE BLOOD COUNT 7.3 10^3/uL (4.0-10.0)
[2019-03-19 08:10] LABS: CALCIUM LEVEL 8.3 MG/DL (8.8-10.2); CREATININE FOR GFR 2.43 MG/DL (0.70-1.30); GLOMERULAR FILTRATION RATE 27.5 (>35); POTASSIUM SERUM 4.3 MEQ/L (3.5-5.1)
[2019-03-19] MEDS: MOM 30ML SUSPENSION UDC PO SCH (08:28)
[2019-03-19] MEDS: MAGNESIUM OXIDE 400 MG TAB (MAG-OX) PO SCH ×2 (08:28→21:40)
[2019-03-19] MEDS: CALCITRIOL 0.25 MCG CAP (S0169) PO SCH (08:29)
[2019-03-19] MEDS: MIRALAX *UNIT DOSE* 17GM PACKET PO SCH (08:29)
[2019-03-19] MEDS: LORATADINE 10 MG TAB PO SCH (08:29)
[2019-03-19] MEDS: oxyCODONE 5MG TAB PO PRN ×3 (08:29→17:55)
[2019-03-19] MEDS: HumaLOG INSULIN (NovoLOG) PER UNIT SC SCH ×4 (08:29→21:00)
[2019-03-19] MEDS: PANTOPRAZOLE 40MG TAB (PROTONIX) PO SCH ×2 (08:29→21:40)
[2019-03-19] MEDS: ATORVASTATIN 20 MG TAB PO SCH (08:29)
[2019-03-19] MEDS: MORPHINE 15 MG SA TAB PO SCH ×2 (10:52→21:41)
--- NOTE | 2019-03-19 12:13 | IPNPDOC ---
Subjective Date Seen The patient was seen on 03/19/19. Subjective Chief Complaint/HPI Did not have a good night. Pain was really bad and he was also nauseous. COuld not sleep. No fever or chills, BP this am was low. Objective Physical Examination General Exam: Positive: Alert, Cooperative, No Acute Distress Eye Exam: Positive: PERRLA, Conjunctiva & lids normal, EOMI; Negative: Sclera icteric ENT Exam: Positive: Atraumatic, Mucous membr. moist/pink, Pharynx Normal Neck Exam: Positive: Supple; Negative: JVD, thyromegaly Chest Exam: Positive: Clear to auscultation, Normal air movement Heart Exam: Positive: Rate Normal, Regular Rhythm, Normal S1, Normal S2; Negative: Murmurs, Rubs Abdomen Exam: Positive: Normal bowel sounds, Soft; Negative: Tenderness, Hepatospenomegaly Extremity Exam: Positive: Normal pulses, Tenderness (in the hip right); Negative: Clubbing, Cyanosis, Edema Skin Exam: Positive: Nl turgor and temperature; Negative: Breakdown, Lesion Assessment /Plan Assessment S/P ELECTIVE RIGHT TOTAL HIP REPLACEMENT DUE TO ADVANCED OA PAIN MANAGEMENT AND DVT PROPHYLAXIS PER ORTHO PT AND OT. 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 HYPERTENSION had episode of hypotension overnight and recieved fluids. CONTINUE ATENOLOL AND AMLODIPINE with hold parameters. 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 FOR NIGHT[place]ES WHICH HELPS, ON PAROXETINE, GOES TO PTSD MEETINGS WEEKLY HYPERLIPIDEMIA ON SIMVASTATIN DRY EYES ON CYCLOSPORINE EYE DROPS Plan/VTE VTE Prophylaxis Ordered?: Yes VS, I&O, 24H, Fishbone Vital Signs/I&O Vital Signs Date Time Temp Pulse Resp B/P (MAP) Pulse Ox O2 Delivery O2 Flow Rate FiO2 03/19/19 10:52 18 Room Air 03/19/19 07:00 99.9 66 93/57 (69) 98 I&O- Last 24 Hours up to 6 AM 03/19/19 06:00 Intake Total 4585 ml Output Total 955 ml Balance 3630 ml Laboratory Data 24H LABS Laboratory Tests 2 03/18/19 12:16: Bedside Glucose (Misc Panel) 156H 03/18/19 16:55: Bedside Glucose (Misc Panel) 199H 03/18/19 21:37: Bedside Glucose (Misc Panel) 179H 03/19/19 06:58: Bedside Glucose (Misc Panel) 173H 03/19/19 07:31: Nucleated Red Blood Cells % (auto) 0.0, Anion Gap 8, Glomerular Filtration Rate 27.5L, Calcium Level 8.3L 03/19/19 11:23: Bedside Glucose (Misc Panel) 82L CBC/BMP Laboratory Tests 03/19/19 07:31 ALEISHA KELLY MD Mar 19, 2019 12:13
--- NOTE | 2019-03-19 12:55 | RO ---
DATE OF PROCEDURE: 03/18/2019 PREOPERATIVE DIAGNOSIS: Right hip osteoarthritis. POSTOPERATIVE DIAGNOSIS: Right hip osteoarthritis. PROCEDURE: Right total hip arthroplasty using a Sperry high offset size 7 stem with a +5 36 ball and a 54 acetabular component. SURGEON: Supa Mckay MD SOCIAL SCIENCES LECTURER: MOHINDER Santiago ANESTHESIA: Spinal. ESTIMATED BLOOD LOSS: 200 COMPLICATIONS: None. INDICATIONS: This is an 79-year-old, who has had persistent left hip pain with severe arthritis. He wished to have hip replacement. Preop clearance was obtained. DESCRIPTION OF PROCEDURE: The patient was taken to the operating room and placed in supine position after spinal anesthesia was induced. He was then turned to the left lateral decubitus position on the Dixon positioner. The right hip was prepped and draped in usual sterile fashion. Time-out was performed. A longitudinal incision was made over the lateral aspect of the right hip and sharp dissection was carried down through subcutaneous tissue until the fascia was encountered. This was incised longitudinally. I then identified the abductors and divided the anterior 40% of the abductors off of the femur, splitting the labrum and then dislocating the hip. I used a canal initiating reamer, followed by the canal finding reamer, the lateralizing reamer and then sequentially reamed up to a size 6 initially. Eventually had to ream up to a size 7 once I was broaching. I then made the neck cut using a broach as a template and removed the head. Directed our attention the acetabulum. Retractors were placed and the labrum was removed. Soft tissue from around the acetabulum removed and then sequentially reamed up to a size 53, which had good concentric reaming and bleeding bone. I was able to medialize this some moderate amount. I then irrigated and packed in a 54 cup. which had an excellent fit, and this was put in the appropriate anteversion and horizontal tilt. I impacted in the polyethylene liner 36 x 54. Made sure it was well seated and then directed attention to the femur. I then sequentially broached up to eventually a size 7 after reaming up to a 7, which had excellent fit and fill. I was able to a calcar plane down slightly and the cut was about three-quarters of a fingerbreadth up from the lesser trochanter. I then trialed off this and various different neck lengths were tried and eventually settled on the high offset size 5, which had good soft tissue tension and excellent stability in flexion internal rotation, extension external rotation. There was minimal shuck in full extension. Overall very pleased with the position and the stability of the components. I then removed the trial components, impacted in the size 7 high offset, which had excellent fit and fill. Dried the taper. impacted in the +5 36 ball and reduced the hip. Put the hip through a range of motion, again very pleased with this. We had irrigated multiple times prior to this. I again irrigated at this point. Placed the tranexamic acid (TXA) in the deep tissue. Repaired the minimus with #1 Vicryl suture and the abductor with #1 Vicryl suture obtaining a solid closure. I was able to place a couple of stitches through bone. I then irrigated. I place some Exparel in deep tissues. Repaired the fascia isaiah with #1 Vicryl suture and a running Stratafix suture. I prepared the subcu with #2-0 Vicryl and the skin with carly. Sterile dressing was applied. He was taken to recovery room in stable condition. There were no known complications. The plan be routine postop. The assistant auto center manager was instrumental in holding retractors and assisting in reducing and dislocating the hip and assisting in wound closure.
[2019-03-19] MEDS ORDERED: RIVAROXABAN 10 MG TAB (XARELTO) PO SCH (18:00)
[2019-03-19] MEDS: ATENOLOL 50 MG TAB PO SCH (21:00)
[2019-03-19] MEDS: amLODIPine 5 MG TAB PO SCH (21:00)
[2019-03-19] MEDS: LEVEMIR (INSULIN DETEMIR) 1 UNITS/0.01ML SC SCH (21:39)
[2019-03-19] MEDS: PARoxetine 20 MG TAB PO SCH (21:40)
[2019-03-19] MEDS: PRAZOSIN 1 MG CAP PO SCH (21:40)
[2019-03-20] MEDS: oxyCODONE 5MG TAB PO PRN ×2 (00:26→12:10)
[2019-03-20] MEDS ORDERED: XARE10TA PO (06:06)
[2019-03-20 06:18] VITALS: BP 119/50
[2019-03-20] MEDS: HumaLOG INSULIN (NovoLOG) PER UNIT SC SCH ×2 (07:30→12:00)
[2019-03-20] MEDS: MIRALAX *UNIT DOSE* 17GM PACKET PO SCH (08:20)
[2019-03-20] MEDS: MOM 30ML SUSPENSION UDC PO SCH (08:20)
[2019-03-20] MEDS: glipiZIDE (GLUCOTROL) 5 MG TAB PO SCH (08:21)
[2019-03-20] MEDS: PANTOPRAZOLE 40MG TAB (PROTONIX) PO SCH (08:21)
[2019-03-20] MEDS: CALCITRIOL 0.25 MCG CAP (S0169) PO SCH (08:21)
[2019-03-20] MEDS: LORATADINE 10 MG TAB PO SCH (08:21)
[2019-03-20] MEDS: MORPHINE 15 MG SA TAB PO SCH (08:22)
[2019-03-20] MEDS: ATORVASTATIN 20 MG TAB PO SCH (08:23)
[2019-03-20] MEDS: MAGNESIUM OXIDE 400 MG TAB (MAG-OX) PO SCH (08:23)
[2019-03-20] MEDS: TIOTROPIUM INHALER/CAPSULE (SPIRIVA) INH SCH (08:29)
[2019-03-20] MEDS: SYMBICORT 160/4.5MCG INHALER 6GM INH SCH (08:29)
== END 2019-03-20 13:20 | disposition home or self-care (01) | DRG 470 ==
LOC: M OR 07:00 → M MS5PR 15:35
PROVIDERS: ADMIT Orthopaedic Surgery; ATTEND Orthopaedic Surgery
PROC: 0SR902A Replacement of Right Hip Joint with Metal on Polyethylene Synthetic Substitute, Uncemented, Open Approach (ICD-10-PCS; principal; 2019-03-18 09:30)
DX: M16.11 Unilateral primary osteoarthritis, right hip (principal); Z88.8 Allergy status to other drugs, medicaments and biological substances; Z88.7 Allergy status to serum and vaccine; E11.9 Type 2 diabetes mellitus without complications; I12.9 Hypertensive chronic kidney disease with stage 1 through stage 4 chronic kidney disease, or unspecified chronic kidney disease; E78.5 Hyperlipidemia, unspecified; J44.9 Chronic obstructive pulmonary disease, unspecified; G47.33 Obstructive sleep apnea (adult) (pediatric); N18.3 Chronic kidney disease, stage 3 (moderate); F43.10 Post-traumatic stress disorder, unspecified; Z85.828 Personal history of other malignant neoplasm of skin; Z79.899 Other long term (current) drug therapy; Z79.4 Long term (current) use of insulin; Z87.891 Personal history of nicotine dependence; K21.9 Gastro-esophageal reflux disease without esophagitis; R51 Headache

== ENCOUNTER → 2019-05-19 | Outpatient (REF) | payer MEDICARE, OTHER ==
[~2019-05-19] MED LIST changes: -LIDOCAINE 1% MDV 20ML VIAL SQ PRN; +PERC5TAB12 PO; +XARE10TA PO
[2019-05-19 13:28] LABS: PERCENT SATURATION 14.8 % (19.7-50.0)
== END ==
LOC: M LAB REF 12:58
PROVIDERS: ATTEND Nurse Practitioner Family
DX: D50.9 Iron deficiency anemia, unspecified (principal)

== ENCOUNTER → 2021-03-14 | Outpatient (REF) | payer MEDICARE, OTHER ==
[~2021-03-14] MED LIST changes: -MAGN400T3 PO; +MAGN400T33 PO; +PANT40TA29 PO; -PANT40TA3 PO
== END ==
LOC: M LAB REF 13:22
PROVIDERS: ATTEND Nurse Practitioner Family
DX: E83.42 Hypomagnesemia (principal)

== ENCOUNTER → 2025-02-24 | Outpatient (CLI) | payer MEDICARE, OTHER ==
[~2025-02-24] MED LIST changes: +ACET-1515 PO; -ACET650T15 PO; +GLIP10TA15 PO; -GLIP10TA6 PO; +LOSA50TA28 PO; -LOSA50TA88 PO; +POTA-149 PO; -POTA10TA16 PO
== END ==
LOC: M RAD 10:12
PROVIDERS: ATTEND Physical Medicine & Rehabilitation
DX: M51.27 Other intervertebral disc displacement, lumbosacral region (principal); M51.369 Other intervertebral disc degeneration, lumbar region without mention of lumbar back pain or lower extremity pain; Z96.641 Presence of right artificial hip joint